=== PATIENT | female | born 1960 | race Caucasian/White ===

== ENCOUNTER → 2019-07-27 13:13 | Outpatient (BNVA) | payer MEDICARE, MEDICAID, SELFPAY | PROVIDERS: Family Provider Family Medicine; PCP Family Medicine; Referring Provider Internal Medicine Rheumatology; Visit Provider Internal Medicine Rheumatology | DX: M35.9 Systemic involvement of connective tissue, unspecified (principal); R76.8 Other specified abnormal immunological findings in serum; Z79.899 Other long term (current) drug therapy; K13.0 Diseases of lips; Z87.891 Personal history of nicotine dependence | CPT/HCPCS: 36415; 99214 ==

== ENCOUNTER 2019-07-27 14:43 | Outpatient (CLI) | payer MEDICARE, MEDICAID, SELFPAY ==
--- NOTE | 2019-07-27 15:34 | XR_ITS ---
WS: [id number] Chest 2 views, 07/27/2019 Clinical Data: joint pain Comparison: None. Findings: No nodules, masses or effusions are seen. The heart is normal. The pulmonary vascularity is not increased. No pneumonia or pneumothorax is seen. XR/XR chest 2V* [id number] Impression: Negative chest.
--- NOTE | 2019-07-27 15:34 | XR_ITS ---
WS: [id number] Right foot, 3 views, 07/27/2019 Clinical Data: joint pain Comparison: None. Findings: No fractures or dislocations are seen. No bone destruction or erosion is noted. The joint spaces and soft tissues are normal. XR/XR foot RT min 3V* [id number] Impression: Negative right foot.
--- NOTE | 2019-07-27 15:34 | XR_ITS ---
WS: [id number] Left foot, 3 views, 07/27/2019 Clinical Data: joint pain Comparison: None. Findings: No fractures or dislocations are seen. No bone destruction or erosion is noted. The joint spaces and soft tissues are normal. XR/XR foot LT min 3V* [id number] Impression: Negative left foot.
--- NOTE | 2019-07-27 15:34 | XR_ITS ---
WS: [id number] Left hand, 3 views, 07/27/2019 Clinical Data: joint pain Comparison: None. Findings: No fractures or dislocations are seen. The soft tissues are unremarkable. There is osteoarthritic ero lilibeth of the left third PIP joint. The remainder of the PIP joints and the IP joints show mild narrowi ng. XR/XR hand LT min 3V* [id number] Impression: 1. 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 2. Mild osteoarthritic change of the remaining PIP and IP joints
--- NOTE | 2019-07-27 15:34 | XR_ITS ---
WS: [id number] Right hand, 3 views, 07/27/2019 Clinical Data: joint pain Comparison: None. Findings: No fractures or dislocations are seen. The soft tissues are unremarkable. There is osteoa rthritic change at the base of the right first metacarpal and trapezium. There is moderate osteoarthr itic change of the right IP joint. 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
== END 2019-07-27 14:44 | disposition home or self-care (01) ==
LOC: RADWPI 14:48
PROVIDERS: Family Provider Family Medicine; PCP Family Medicine; Visit Provider Internal Medicine Rheumatology
DX: M25.50 Pain in unspecified joint (principal); M19.042 Primary osteoarthritis, left hand; M19.041 Primary osteoarthritis, right hand; M32.9 Systemic lupus erythematosus, unspecified
CPT/HCPCS: 71046; 73130; 73630; 80076; 81001; 82565; 82570; 82607; 82728; 83540; 83550; 84156; 85025; 85651; 86140; 86160; 87086

== ENCOUNTER 2021-05-23 14:22 | Outpatient (CLI) | payer MEDICARE, MEDICAID, SELFPAY ==
--- NOTE | 2021-05-23 14:30 | MM_ITS ---
WS: [id number] Bilateral screening 3D tomosynthesis digital mammogram, 05/23/2021 Clinical Data: SCREENING Comparison: 02/16/2008. Findings: The breast parenchymal pattern shows fibroglandular tissue No spiculated masses or clustered calcific ations are seen. There are no secondary signs of carcinoma. There is a great reduction in size of the breasts and the patient may have lost weight. There is a biopsy clip in the lateral aspect of the ri ght breast. There are lymph nodes in both axilla. MM/[place] [id number] Impression: 1. Negative bilateral mammogram unchanged. 2. Recommend annual screening mammograms. BIRADS: 1-Negative FOLLOW UP: 1 Year Follow-up The CAD color checker was used.
== END 2021-05-23 14:23 | disposition home or self-care (01) ==
LOC: RADSHAW 14:23
PROVIDERS: Family Provider Family Medicine; PCP Family Medicine; Visit Provider Family Medicine
DX: Z12.31 Encounter for screening mammogram for malignant neoplasm of breast (principal)
CPT/HCPCS: 77063; 77067

== ENCOUNTER 2021-11-28 15:17 | Outpatient (CLI) | payer MEDICARE, MEDICAID, SELFPAY ==
--- NOTE | 2021-11-28 15:39 | XR_ITS ---
WS: [id number] SCREENING DEXA SCAN [employer] CLINICAL INFORMATION: POSTMENOPAUSAL COMPARISON: None. FINDINGS: The L1-L4 bone mineral density measures 0.995 g/cm2. This corresponds to a T score score of -1.5 and Z score of 0.1. Left femoral neck bone mineral density measures 0.892 g/cm2. This corresponds to a T score of -0.9 an d Z score of 0.3. Right femoral neck bone mineral density measures 0.850 g/cm2. This corresponds to a T score -1.2of an d Z score of 0.0. Mean femoral neck bone mineral density measures 0.871 g/cm2. This corresponds to a T score of -1.1 an d Z score of 0.1. XR/XR DEXA axial skeleton* [id number] IMPRESSION: Osteopenia lumbar spine. Osteopenia femoral necks at the lower end of the range . Patient's FRAX calculated 10 year probability for major osteoporotic fracture i s 9.1 % and osteoporotic hip fracture is 1.0%.
== END 2021-11-28 15:18 | disposition home or self-care (01) ==
LOC: RAD 15:18
PROVIDERS: PCP Family Medicine; Visit Provider Nurse Practitioner Family
DX: Z78.0 Asymptomatic menopausal state (principal); M85.88 Other specified disorders of bone density and structure, other site
CPT/HCPCS: 77080

== ENCOUNTER 2023-12-10 12:38 | Outpatient (CLI) | payer MEDICARE, MEDICAID, SELFPAY ==
--- NOTE | 2023-12-10 12:40 | MM_ITS ---
WS: [id number] BILATERAL 3D TOMOSYNTHESIS DIGITAL SCREENING MAMMOGRAPHY WITH CAD CLINICAL INFORMATION: SCREENING HISTORY: Screening mammogram. No current complaints. COMPARISON: 2021 TECHNIQUE: Bilateral CC and MLO views. FINDINGS: Scattered fibroglandular densities bilaterally. No suspicious focal mass, asymmetry, calcifications, or architectural distortion. No evidence of malignancy. Stable biopsy clip RIGHT breast MM/MM scr BI tomosynthesis [id number] IMPRESSION: DENSITY: There are scattered areas of fibroglandular density. BI-RADS: 2 - Benign. FOLLOW UP: 1 Year Follow-up Recommend return to annual screening mammography.
== END 2023-12-10 12:39 | disposition home or self-care (01) ==
LOC: MOBLMAM 12:43
PROVIDERS: PCP Family Medicine; Visit Provider Family Medicine
DX: Z12.31 Encounter for screening mammogram for malignant neoplasm of breast (principal); R92.323 Mammographic fibroglandular density, bilateral breasts
CPT/HCPCS: 77063; 77067